=== PATIENT | male | born 1940 | race Caucasian/White ===

== ENCOUNTER → 2017-11-02 | Outpatient (CLI) | payer OTHER | END | disposition home or self-care (01) | LOC: EKG 13:54 | DX: I05.1 Rheumatic mitral insufficiency (principal); I07.1 Rheumatic tricuspid insufficiency; I06.1 Rheumatic aortic insufficiency; I70.0 Atherosclerosis of aorta; I05.9 Rheumatic mitral valve disease, unspecified; I51.7 Cardiomegaly | CPT/HCPCS: 93306 ==